=== PATIENT | female | born 1950 | race Caucasian/White ===

== ENCOUNTER 2018-05-15 12:27 | Inpatient (IN) ==
[2018-05-15] MEDS ORDERED: ONDANSETRON 4 MG/2 ML VIAL IV PRN (15:45)
[2018-05-15] MEDS ORDERED: ACETAMINOPHEN 325 MG TABLET PO PRN (15:45)
[2018-05-15] MEDS ORDERED: MORPHINE 4 MG/1 ML VIAL IV PRN (15:45)
[2018-05-15] MEDS ORDERED: OXAZEPAM 10 MG CAPSULE PO PRN (15:57)
[2018-05-15] MEDS: SODIUM CHLORIDE 0.45% 1,000 ML IV SCH (16:09)
[2018-05-15] MEDS: oxyCODONE IR 5 MG TABLET PO PRN (20:22)
[2018-05-15] MEDS: TEMAZEPAM 15 MG CAPSULE PO PRN (20:22)
[2018-05-16] MEDS: SODIUM CHLORIDE 0.45% 1,000 ML IV SCH ×3 (00:15→23:15)
[2018-05-16 05:09] LABS: Basophils % 0.2 % (0.0-0.8); Eosinophils # 0.3 10*3/uL (0.0-0.87); Eosinophils % 2.3 % (0.00-10.9); Hematocrit 25.9 VOL% (35.7-47.0); Hemoglobin 8.5 GM/DL (12.0-16.0); Immature Granulocytes % 0.9 %; Immature Granulocytes Absolute 0.13 #; Lymphocytes # 1.5 10*3/uL (1.4-4.0); Lymphocytes % 10.4 % (21.3-54.2); Mean Corpuscular HGB Conc 32.8 GM/DL (32-36); Mean Corpuscular Hemoglobin 28 PG (27-34); Mean Corpuscular Volume 86.3 FL (87-102); Mean Platelet Volume 11.1 FL (9.6-12.0); Monocytes # 0.6 10*3/uL (0.11-0.8); Monocytes % 4.5 % (1.7-12.7); Neutrophils # 11.5 10*3/uL (1.4-7.4); Neutrophils % 81.7 % (38.7-73.9); Platelet Count 448 T/CUMM (130-400); Red Cell Distribution Width 19.5 % (9.3-17.3); White Blood Count 14.1 T/CUMM (4-12)
[2018-05-16 05:26] LABS: Albumin 1.5 G/DL (3.4-5.0); Calcium 8.4 MG/DL (8.5-10.1); Osmolality,Calculated 265.2 MOS/KG (273-304); Potassium 3.7 MMOL/L (3.5-5.1); Total Protein 6.5 G/DL (6.4-8.3)
[2018-05-16 05:31] LABS: Bilirubin,Total 13.7 MG/DL (0.2-1.0)
[2018-05-16] MEDS ORDERED: INDOMETHACIN SUPP 50 MG SUPP RECTAL ONE (07:00)
[2018-05-16] MEDS ORDERED: OXAZEPAM 10 MG CAPSULE PO PRN (07:00)
[2018-05-16] MEDS: PANTOPRAZOLE 40 MG TABLET PO SCH (07:30)
[2018-05-16 07:58] LABS: INR 1.7; PT Patient Result 17.6 SECS
[2018-05-16] MEDS ORDERED: KETOROLAC 30 MG/1 ML VIAL IV ONE (09:00)
[2018-05-16] MEDS ORDERED: SUCCINYLCHOLINE 200 MG/10 ML VIAL ONE (10:00)
[2018-05-16] MEDS ORDERED: LIDOCAINE 100 MG/5 ML SYRINGE ONE (10:00)
[2018-05-16] MEDS ORDERED: PROPOFOL 200 MG/20 ML VIAL IV ONE (10:00)
[2018-05-16] MEDS ORDERED: ONDANSETRON 4 MG/2 ML VIAL ONE (10:00)
[2018-05-16] MEDS ORDERED: fentaNYL 100 MCG/2 ML VIAL ONE (10:27)
[2018-05-16] MEDS ORDERED: MIDAZOLAM 2 MG/2 ML VIAL ONE (10:28)
[2018-05-16] MEDS: PIPERACILLIN/TAZOBACTAM 3,375 MG in SODIUM CHLORIDE 0.9% 100 ML IV SCH (15:17)
[2018-05-16] MEDS: oxyCODONE IR 5 MG TABLET PO PRN ×2 (15:17→23:12)
[2018-05-16] MEDS ORDERED: LACTATED RINGERS 500 ML IV ONE (15:40)
[2018-05-16] MEDS: TEMAZEPAM 15 MG CAPSULE PO PRN (23:12)
[2018-05-17] MEDS: PIPERACILLIN/TAZOBACTAM 3,375 MG in SODIUM CHLORIDE 0.9% 100 ML IV SCH (04:10)
[2018-05-17 05:01] LABS: Basophils % 0.2 % (0.0-0.8); Eosinophils # 0.2 10*3/uL (0.0-0.87); Eosinophils % 1.3 % (0.00-10.9); Hematocrit 23.7 VOL% (35.7-47.0); Hemoglobin 7.8 GM/DL (12.0-16.0); Immature Granulocytes % 1.2 %; Immature Granulocytes Absolute 0.17 #; Lymphocytes # 0.8 10*3/uL (1.4-4.0); Lymphocytes % 5.7 % (21.3-54.2); Mean Corpuscular HGB Conc 32.9 GM/DL (32-36); Mean Corpuscular Hemoglobin 28 PG (27-34); Mean Corpuscular Volume 86.2 FL (87-102); Mean Platelet Volume 10.5 FL (9.6-12.0); Monocytes # 0.6 10*3/uL (0.11-0.8); Monocytes % 3.9 % (1.7-12.7); Neutrophils # 12.6 10*3/uL (1.4-7.4); Neutrophils % 87.7 % (38.7-73.9); Platelet Count 423 T/CUMM (130-400); Red Blood Count 2.75 MC/CUMM (3.8-5.5); Red Cell Distribution Width 19.9 % (9.3-17.3); White Blood Count 14.3 T/CUMM (4-12)
[2018-05-17 05:14] LABS: Albumin 1.4 G/DL (3.4-5.0); Calcium 8.2 MG/DL (8.5-10.1); Osmolality,Calculated 270.8 MOS/KG (273-304); Potassium 3.8 MMOL/L (3.5-5.1); Total Protein 5.9 G/DL (6.4-8.3)
[2018-05-17 05:16] LABS: Bilirubin,Total 14.6 MG/DL (0.2-1.0)
[2018-05-17 08:40] VITALS: BP 100/58
[2018-05-17] MEDS: PANTOPRAZOLE 40 MG TABLET PO SCH (09:23)
== END 2018-05-17 11:14 | disposition home or self-care (01) | DRG 445 ==
LOC: N.2E 14:28 → SUATTDRO 14:28
PROVIDERS: ADMIT Internal Medicine; ATTEND Internal Medicine